=== PATIENT | female | born 1995 | race African-American/Black ===

== ENCOUNTER 2022-12-24 19:16 | Emergency (ER) | payer SELFPAY ==
[2022-12-24 19:37] VITALS: BP 131/82; PULSE 101; RESP 18; TEMP 36.9; O2SAT 100; BMI 31.6
[2022-12-24 21:01] LABS: Bacteria Urine Occasional (0-1); Culture Indicated Urine Cult Not Indicated; Mucus Urine 1+ (Negative); RBC Urine None Seen (0-5/HPF); Squamous Epithelial Cell Urine 1-5 /HPF (0-5/HPF); WBC Urine 0-1/HPF (0-5/HPF)
[2022-12-24 21:27] LABS: Urine N gonorrhoeae NOT DETECTED
[2022-12-24 21:29] LABS: Urine Chlamydia NOT DETECTED
--- NOTE | 2022-12-24 22:34 | ED_ITS ---
HPI - Female Genitourinary General Chief complaint: Urogenital-Female Stated complaint: needs checked for STD Time Seen by Provider: 12/24/22 22:23 Source: patient Mode of arrival: Ambulatory History of Present Illness HPI Narrative: Patient is a 27-year-old female presenting today wanting an STD check. She reports that she received an anonymous text message reporting that she should be tested for variety of STDs. She is having some irritation with urination but does not report any significant abnormal vaginal discharge. Previously she has had chlamydia and gonorrhea but that has been a long time ago. She denies any fever or chills. No other complaints. Related Data Previous Rx's Medication Instructions Recorded metronidazole 500 mg tablet 500 mg PO BID 7 days #14 tabs 12/24/22 Allergies Allergy/AdvReac Type Severity Reaction Status Date / Time No Known Drug Allergies Allergy Verified 12/24/22 19:37 Review of Systems Review of Systems ROS Unobtainable: All systems reviewed & are unremarkable except as noted in HPI and below Patient History alcohol intake frequency: holidays/special occasions only Substance Use Type: does not use Exam Initial Vital Signs Initial Vital Signs: Vital Signs Temperature 98.5 F 12/24/22 19:37 Pulse Rate 101 H 12/24/22 19:37 Respiratory Rate 18 12/24/22 19:37 Blood Pressure 131/82 12/24/22 19:37 Pulse Oximetry 100 12/24/22 19:37 Oxygen Delivery Method Room Air 12/24/22 19:37 GENERAL: Well-appearing, well-nourished and in no acute distress. CARDIOVASCULAR: peripheral pulses in tact, cap refill <2 sec RESPIRATORY: No respiratory distress, speaks in full sentences without difficu lty ABDOMEN: Soft, nontender, no guarding or rebound PELVIC: External genitalia is normal, no vaginal bleeding, no vaginal discharge, no odor, cervical os is closed, no adnexal tenderness EXTREMITIES: Normal range of motion, no clubbing or edema. Neurovascularly intact NEUROLOGICAL: Cranial nerves II through XII grossly intact. Normal gait and speech. SKIN: Warm, dry, no petechiae, no rashes or lesions. Course Orders Ordered: ED Orders 12/24/22 19:50 Chlamydia Gonorrhea PCR -URINE Stat 12/24/22 20:30 Urine Microscopic Stat 12/24/22 22:35 Chlamydia/Gonoc/Myco Genital Stat Genital Culture Stat Wet Prep Tric BV Kelsy Stat 12/24/22 22:37 HIV 1 & 2 Ab/Ag 4th Gen Combo Stat Vital Signs Vital signs: Vital Signs - 8 hr 12/24/22 23:41 Pulse Rate 90 Respiratory Rate 16 Blood Pressure 116/72 Pulse Oximetry 100 Oxygen Delivery Method Room Air MDM - Female Genitourinary Lab Data Labs: Lab Results 12/24/22 12/24/22 12/24/22 Range/Units 19:50 20:30 22:37 Urine RBC None seen (0-5/HPF) Urine WBC 0-1/hpf (0-5/HPF) Ur Squamous Epith Cells 1-5 /hpf (0-5/HPF) Urine Bacteria Occasional (0-1) (None) Urine Mucus 1+ H (Negative) Ur Culture Indicated? Cult not indicated Ur Chlamydia DNA (PCR) Not detected HIV 1&2 Ab/P24 Ag 4thGn Negative (NEGATIVE) N gonorrhoeae DNA (PCR) Not detected Point of Care Testing Test Results Negative Urine Dip Bedside Urine Glucose Negative Bedside Urine Bilirubin - Negative Bedside Urine Ketone ++ 40 Urine Specific [place] 1.025 Bedside Urine Occult Blood - Negative Bedside Urine pH 6 Bedside Urine Protein +/- 15 Bedside Urine Urobilinogen - Negative Bedside Urine Nitrite - Negative Bedside Urine Leukocytes - Negative Esterase MDM Narrative Medical decision making narrative: 27-year-old female presents today for wanting STD check. It is unclear exactly what STD she has been exposed to she knows we the partner is. Gonorrhea chlamydia urine has been negative. However backup swab is sent. Waiting for wet mount results. She wants an HIV test as well. We also discussed how she would need other testing such as hepatitis C possibly syphilis and other things this can be done with the primary care provider or [facility]. HIV test is negative she left prior to results. She will call tomorrow for the results. Wet Prep Tric BV Kelsy Final 12/24/22- 2311 White blood cells Few WBCs Clue cells: Few Yeast: None seen Trichomonas: None seen Gram Stain PENDING Genital Culture PENDING Discharge Plan Departure Patient Disposition: Home Clinical Impression: Bacterial vaginosis Instructions: DI for Bacterial Vaginosis Activity Restrictions/Additional Instructions: *You have been diagnosed with bacterial vaginosis *What to do: At this time no identified STD. I do recommend that you get tested for other STDs by [facility] or your PCP *Continue to take medications as directed Flagyl 500 mg twice a day for 7 days--> HAGGEN *Follow up with your primary care provider in 2-3 days or call [phone] *Return to ER if you should have increasing pelvic pain vaginal bleeding or any new, worsening or concerning symptoms Prescriptions: New metronidazole 500 mg tablet 500 mg PO BID 7 Days Qty: 14 0RF Stand Alone Forms: Patient Portal/API
--- NOTE | 2022-12-24 22:46 | PC.NURSE ---
This RN gave pt education on women's health including proper follow up with PCP or net applications developer, hygiene, UTI and STD treatment plans and methods of diagnosis, resources for establishing a PCP or net applications developer and safe sex practices. At this time pt has no further questions and is now waiting in room for discharge paperwork.
--- NOTE | 2022-12-24 22:48 | PC.NURSE ---
Pt signed consent for for HIV blood draw. Pt had no questions in regards to the consent form. This RN witnessed signature.
[2022-12-24 23:41] VITALS: BP 116/72; PULSE 90; RESP 16; O2SAT 100
[2022-12-24 23:44] LABS: HIV 1 & 2 Ab/Ag 4th Gen Combo NEGATIVE (NEGATIVE)
[2022-12-30 15:02] LABS: Chlamydia trachomatis Negative (Negative); Mycoplasma genitalium Negative (Negative); Neisseria gonorrhoeae Negative (Negative)
== END 2022-12-24 23:49 | disposition home or self-care (01) ==
PROVIDERS: Emergency Provider Emergency Medicine
DX: N76.0 Acute vaginitis (principal)
CPT/HCPCS: 81003; 81015; 81025; 87070; 87077; 87205; 87210; 87389; 87491; 87563; 87591; 99282; 99283

== ENCOUNTER → 2023-01-18 12:09 | Outpatient (CLI) | payer SELFPAY | PROVIDERS: Referring Provider Family Medicine; Visit Provider Family Medicine | DX: Z23 Encounter for immunization (principal) | CPT/HCPCS: 90471; 90686 ==

== ENCOUNTER → 2023-07-09 11:32 | Outpatient (CLI) | payer OTHER, SELFPAY ==
[2023-07-09 12:41] LABS: Influenza A - CEPHEID Flu A NEGATIVE (NEGATIVE); Influenza B - CEPHEID Flu B NEGATIVE (NEGATIVE); Respiratory Syncytial Virus Negative (Negative)
[2023-07-09 13:07] LABS: COVID-19 CEPHEID 4-PLEX PCR Negative (Negative)
== END ==
PROVIDERS: PCP Family Medicine; Visit Provider Nurse Practitioner Family
DX: J02.9 Acute pharyngitis, unspecified (principal)
CPT/HCPCS: 0241U; 87070